=== PATIENT | female | born 1985 | race African-American/Black ===

== ENCOUNTER 2020-08-07 01:02 | Emergency (ER) | payer OTHER ==
[2020-08-07 07:15] LABS: ABSOLUTE BASOPHILS # (AUTO) 0.1 10^3/uL (0.0-0.2); ABSOLUTE EOSINOPHILS # (AUTO) 0.1 10^3/uL (0.0-0.6); ABSOLUTE LYMPHOCYTES (AUTO) 2.7 10^3/uL (0.5-4.7); ABSOLUTE MONOCYTES (AUTO) 0.8 10^3/uL (0.1-1.4); ABSOLUTE NEUT (AUTO) 3.3 10^3/uL (1.7-8.2); HEMATOCRIT 37.6 % (36.0-47.0); HEMOGLOBIN 12.6 g/dL (12.0-15.5); LYMPHOCYTES % (AUTO) 38.5 % (13-45); MEAN CORPUSCULAR HEMOGLOBIN 30.6 pg (27.0-33.4); MEAN CORPUSCULAR HGB CONC 33.4 g/dL (32.0-36.0); MEAN CORPUSCULAR VOLUME 92 fl (80-97); MONOCYTES % (AUTO) 11.3 % (3-13); PLATELET COUNT 351 10^3/uL (150-450); RED CELL DISTRIBUTION WIDTH 13.8 % (11.5-14.0); SEGMENTED NEUTROPHILS % (AUTO) 47.2 % (42-78); TOTAL CELLS COUNTED % (AUTO) 100 %; WHITE BLOOD COUNT 6.9 10^3/uL (4.0-10.5)
[2020-08-07 07:17] LABS: ALBUMIN 4.3 g/dL (3.5-5.0); ALKALINE PHOSPHATASE 81 U/L (38-126); ANION GAP 10 (5-19); ASPARTATE AMINO TRANSFERASE 27 U/L (14-36); BILIRUBIN,DIRECT 0.1 mg/dL (0.0-0.4); BILIRUBIN,TOTAL 0.4 mg/dL (0.2-1.3); BLOOD UREA NITROGEN 13 mg/dL (7-20); C-REACTIVE PROTEIN 5.2 mg/L (<10.0); CALCIUM 10.2 mg/dL (8.4-10.2); CARBON DIOXIDE 23 mmol/L (22-30); CHLORIDE 105 mmol/L (98-107); CREATINE KINASE 50 U/L (30-135); POTASSIUM 3.9 mmol/L (3.6-5.0); TOTAL PROTEIN 7.7 g/dL (6.3-8.2)
[2020-08-07 07:19] LABS: GLUCOSE 60 mg/dL (75-110)
[2020-08-07] MEDS ORDERED: DEXTROSE 5%-LACTATED RINGERS 1,000 ML IV ONE (07:20)
--- NOTE | 2020-08-07 07:43 | RADIOLOGY REPORT (SQ) ---
ACUTE ABDOMINAL SERIES: 08/07/2020 6:41 AM DATABASE MANAGER COMPARISON: None available TECHNIQUE: A PA view of the chest was obtained with upright and supine views of the abdomen. HISTORY: 34-year old with abdominal pain. FINDINGS: The cardiomediastinal silhouette is normal in size. No pneumothorax is seen. No acute airspace opacities are seen. No discrete pleural effusion is apparent. There is mild elevation of the right hemidiaphragm. The visualized bowel gas pattern is nonspecific and nonobstructive. No free air is seen beneath the hemidiaphragms. No abnormal intraabdominal calcifications are seen. There are no findings to suggest organomegaly. There are changes of bilateral tubal ligation clips noted within the lower pelvis. IMPRESSION: No acute airspace opacities are seen. The bowel gas pattern is nonobstructive and nonspecific.
[2020-08-07 07:48] LABS: VENOUS BLOOD BASE EXCESS -0.9 mmol/L; VENOUS BLOOD HCO3 24.6 mmol/L (20-32); VENOUS BLOOD PCO2 43.9 mmHg (35-63); VENOUS BLOOD PH 7.37 (7.30-7.42)
--- NOTE | 2020-08-07 07:51 | ER Document Report ---
Entered by WENDY RODRIGUEZ SCRIBE 08/07/20 0633 Acting as scribe for:CARMELA URIBE MD ED GI/ - General Chief Complaint: Abdominal Pain Stated Complaint: HERNIA MESH ISSUES Time Seen by Provider: 08/07/20 06:31 Primary Care Provider: MAHESH CADENA MD [ACTIVE STAFF] - Follow up as needed ALLYSSA PALMER DO [Primary Care Provider] - Follow up as needed Mode of Arrival: Ambulatory Information source: Patient Notes: This 34 year old female patient with a history of hernia mesh repair x2 years ago presents to the ED today with complaints of severe generalized abdominal pain for the past x2 weeks, worse last night. Patient describes the pain as sharp in nature, mostly in the RUQ. Patient states that she was told that her gallbladder is enlarged, but there are no stones or sludge. Denies HIDA scan in the past. She mentions that she has seen her PCP at [facility] in the last couple of months with this complaint and was advised to avoid fatty foods, which she has done because she states that it causes "extreme" pain immediately after eating it that lasts for hours. She reports nausea with bilious emesis x2 weeks ago, but denies fever or diarrhea. - Related Data Allergies/Adverse Reactions: benzocaine [From Chloraseptic (benzocaine)] Allergy (Verified 08/07/20 02:20) menthol [From Chloraseptic (benzocaine)] Allergy (Verified 08/07/20 02:20) Sulfa (Sulfonamide Antibiotics) Allergy (Verified 08/07/20 02:20) sulfamethoxazole [From Bactrim] Allergy (Verified 08/07/20 02:20) trimethoprim [From Bactrim] Allergy (Verified 08/07/20 02:20) Home Medications: Lovenox Past Medical History - General Information source: Patient - Social History Smoking Status: Never Smoker Cigarette use (# per day): No Chew tobacco use (# tins/day): No Smoking Education Provided: No Frequency of alcohol use: None Drug Abuse: None Family History: Reviewed & Not Pertinent Patient has suicidal ideation: No Patient has homicidal ideation: No - Past Medical History Cardiac Medical History: Reports: Hx DVT, Hx Hypertension, Hx Pulmonary Embolism, Hx Heart Murmur Endocrine Medical History: Reports: Hx Diabetes Mellitus Type 2 - insulin pump GI Medical History: Reports: Hx Gastroesophageal Reflux Disease Past Surgical History: Reports: Hx Abdominal Surgery - Phil Fundoplication, Hx Section - x3, Hx Herniorrhaphy - mesh, Hx Tubal Ligation Review of Systems - Review of Systems Constitutional: See HPI. denies: Fever Gastrointestinal: See HPI, Abdominal pain, Nausea, Vomiting. denies: Diarrhea Female Genitourinary: See HPI, Last menstrual period - x1.5 months ago, Irregular period -: Yes All other systems reviewed and negative Physical Exam - Vital signs Vitals: Temp Pulse Resp BP Pulse Ox 98.8 F 84 18 116/64 96 08/07/20 01:22 08/07/20 01:22 08/07/20 01:22 08/07/20 01:22 08/07/20 01:22 Interpretation: Normal - General General appearance: Alert In distress: None - HEENT Head: Normocephalic, Atraumatic Eyes: Normal Pupils: PERRL Neck: Normal, Supple - Respiratory Respiratory status: No respiratory distress Chest status: Nontender Breath sounds: Normal Chest palpation: Normal - Cardiovascular Rhythm: Regular Heart sounds: Normal auscultation Murmur: Yes Systolic murmur grade 1-6: 1 Friction rub: No Gallop: None auscultated - Abdominal Inspection: Obese Distension: No distension Bowel sounds: Normal Tenderness: Tender - Diffuse tenderness to palpation, mostly the upper abdomen, Other - Abdomen soft Organomegaly: No organomegaly - Back Back: Normal, Nontender - Extremities General upper extremity: Normal inspection General lower extremity: Normal inspection. No: Edema - Neurological Neuro grossly intact: Yes Orientation: AAOx4 Francoise Coma Scale Eye Opening: Spontaneous Francoise Coma Scale Verbal: Oriented Francoise Coma Scale Motor: Obeys Commands [place] Coma Scale Total: 15 - Psychological Associated symptoms: Normal affect, Normal mood - Skin Skin Temperature: Warm Skin Moisture: Dry Skin Color: Normal Course - Re-evaluation Re-evalutation: 08/07/20 08:25 There were no ketones in the urine. 08/07/20 08:39 I went to check on the patient and found her to be sleeping soundly. I did call out to her and pushed on her knee but she did not stir. I will let her sleep for now and go back and check on her little later. 08/07/20 10:00 I went back to recheck the patient, and found her to still be sound asleep. This time I struck her a little more vigorously to wake her up and reviewed the lab work and x-rays and discharge plan. She was given copies of her lab work to take back to her primary care provider. - Vital Signs Vital signs: Temp Pulse Resp BP Pulse Ox 98.8 F 84 18 116/64 96 08/07/20 01:22 08/07/20 01:22 08/07/20 01:22 08/07/20 01:22 08/07/20 01:22 - Laboratory Result Diagrams: 08/07/20 06:05 08/07/20 06:05 Laboratory results interpreted by me: 08/07/20 08/07/20 08/07/20 06:05 07:49 09:18 Creatinine 0.47 L Glucose 60 L POC Glucose 171 H Urine Glucose (UA) 150 H Urine Ascorbic Acid 20 H - Diagnostic Test Radiology reviewed: Reports reviewed - Acute abdominal series is unremarkable Discharge - Discharge Clinical Impression: Postprandial abdominal pain in right upper quadrant Condition: Stable Disposition: HOME, SELF-CARE Additional Instructions: Abdominal Pain There are many causes of abdominal pain. Pain can mean a serious problem requiring surgery (such as appendicitis). It can also be an innocent problem that goes away on its own (such as a viral infection). Often, time must pass to determine the cause of pain. The physician does not feel that hospitalization is necessary, at present. Things may change within the next 24 hours. Call the doctor or come back for re- examination if any problems occur, such as: (1) Pain that becomes more severe, steady, or becomes concentrated in one s pecific area. Also, pain that is more severe with movement or coughing. (2) Vomiting that persists or becomes more frequent. (3) Blood in the vomitus, urine, or bowel movements. Blood in the stool may have a tarry or black appearance. (4) Shaking chills or fever greater than 100 degrees F. (5) The abdomen becomes more distended or swollen. (6) Bowel movements cease. (7) Failure to improve as expected. Call Dr. Cadena's office to schedule an appointment. Follow-up with your primary care provider to be sure they will authorize the referral. RETURN TO THE EMERGENCY ROOM IF ANY NEW OR WORSENING SYMPTOMS. Referrals: ALLYSSA PALMER DO [Primary Care Provider] - Follow up as needed MAHESH CADENA MD [ACTIVE STAFF] - Follow up as needed I personally performed the services described in the documentation, reviewed and edited the documentation which was dictated to the scribe in my presence, and it accurately records my words and actions.
[2020-08-07 08:14] LABS: APPEARANCE,URINE CLEAR; BILIRUBIN,URINE NEGATIVE (NEGATIVE); COLOR,URINE YELLOW; GLUCOSE, URINE 150 mg/dL (NEGATIVE); KETONES,URINE NEGATIVE (NEGATIVE); LEUKOCYTE ESTERASE,URINE NEGATIVE (NEGATIVE); NITRITE,URINE NEGATIVE (NEGATIVE); PROTEIN,URINE NEGATIVE (NEGATIVE); URINE SPECIFIC GRAVITY 1.018; UROBILINOGEN,URINE NEGATIVE mg/dL (<2.0)
[2020-08-07 10:22] VITALS: BP 106/65
== END 2020-08-07 10:24 | disposition home or self-care (01) ==
LOC: ER 01:02
DX: R10.11 Right upper quadrant pain (principal); R10.84 Generalized abdominal pain; R11.2 Nausea with vomiting, unspecified; I10 Essential (primary) hypertension; Z86.718 Personal history of other venous thrombosis and embolism; Z86.711 Personal history of pulmonary embolism
CPT/HCPCS: 99285; 96360; 96361; 36415; 82962; 82550; 83690; 83735; 85025; 86140; 80053; 81001; 85379; 82803; 74022; J7121